=== PATIENT | male | born 1960 | race Caucasian/White ===

== ENCOUNTER 2017-09-30 12:37 | Inpatient (IN) | payer OTHER, MEDICAID ==
[~2017-09-30] VITALS: Ht 170 cm; Wt 53.7 kg
--- NOTE | ~2017-09-30 | PR ---
[place], [place] PROGRESS NOTE NAME: [id number] UN[facility] #: [id number] ROOM: 415 DOCTOR: USMAN DOE MD,MARCELLO BIRTHDATE: [birth year] DOS: 10/02/2017 SUBJECTIVE: The patient noted comfortable at this time, was noted reduction in symptoms of shortness of breath, cough and others. He was sitting on the bed. The patient was drinking coffee. He has not been noted symptoms of chest pain or hemoptysis. Denies edema or pain in lower extremities. OBJECTIVE: VITAL SIGNS: Normal temperature, respiratory rate 20, heart rate 96, blood pressure 114/65. Pulse ox saturation on room air 93% saturation. HEENT: Shows head was atraumatic. Eyes nonicterus. NECK: Supple. CARDIOVASCULAR: S1, S2 is audible. LUNGS: Noted moderate decreased breath sounds in the lungs bilaterally, scattered expiratory wheezing, no crackles. ABDOMEN: Soft, nontender. Bowel sounds present. EXTREMITIES: Without any acute edema. IMPRESSION: 1. Acute exacerbation of chronic obstructive pulmonary disease, rule out alpha 1 antitrypsin deficiency. With current assessment of the patient noted CT scan basilar predominance of the panlobular and centrilobular emphysema changes which are noted combination. 2. The patient with chronic nicotine dependence. 3. Acute left lower lobe pneumonia. PLAN OF MANAGEMENT: Continue antibiotics, bronchodilators and oxygen supplementation. No change in treatment at this time will be necessary. A chest x-ray, repeat, will be ordered to be done tomorrow morning to reassess the progression of the pneumonia. No additional change in treatment otherwise will be necessary. MARCELLO MARY MD CM:PNTRANS [id number] MARCELLO DOE MD 10/02/172122 interface
--- NOTE | ~2017-09-30 | CON ---
[place], [place] REPORT OF CONSULTATION [id number] UN[facility] #: [id number] ROOM: 415 DOCTOR: MARCELLO REGALADO MD BIRTHDATE: [birth year] DOS: 10/01/2017 PULMONARY CONSULTATION, EVALUATION AND MANAGEMENT CONSULTATION REQUESTED BY: Hospitalist services. REASON FOR CONSULTATION: To assess the patient for acute pneumonia. HISTORY OF PRESENT ILLNESS: This is 57-year-old male patient who has been admitted to the hospital under the hospitalist service on the date of 09/30/2017. The patient came into the hospital and presented to the Emergency Room as he has developed symptoms of increased coughing, which has been noted nonproductive, ongoing for the past several days at home. The symptoms of the patient worsened, associated with wheezing and shortness of breath. He got more concerned when he started having symptoms, which are described as pain in the left chest wall. Pain was described mild to moderate with worsening, resulting from the increased coughing with deep inspiratory effort. Pain was described to be sharp. He denies symptoms of hemoptysis. The patient presented to the Emergency Room where he has been assessed for pain in the flank and the chest wall. He underwent CT scan of the abdomen and pelvis, which are reported with findings of pneumonia or infiltration in the left lower lung. The patient stated symptoms have been noted partially improved since yesterday. He denies symptoms of hemoptysis. The patient denies symptoms of chills, but has been noted with symptoms of fever at home. REVIEW OF SYSTEMS: CONSTITUTIONAL: Fatigue and tiredness reported. Denies symptoms of fever or chills. EYES: Denies any burning, redness, or tenderness. EARS, NOSE, AND THROAT: Denies symptoms of sore throat, hoarseness, otalgia, or postnasal drainage. CARDIOVASCULAR: Denies angina pain, edema or pain of the lower extremities. GASTROINTESTINAL: Denies dysphagia, nausea, vomiting, diarrhea, abdominal pain, hematemesis, melena, or hematochezia. SKIN: Denies abnormal lesions or rashes. MUSCULOSKELETAL: Without any acute deformities, pain, or tenderness of any joints. CENTRAL NERVOUS SYSTEM: Denies dizziness, headache, diplopia, or syncopal episodes. Remaining systems were reviewed. They were noted all negative. PAST MEDICAL HISTORY: Reported: 1. COPD. 2. History of pneumothorax twice in the past many years ago. 3. Tobacco use. PAST SURGICAL HISTORY: Noted as: 1. Hernia repair. 2. Chest tube insertion for what was described by the patient most likely a chemical pleurodesis by description many years ago on the left side. [place], [place] REPORT OF CONSULTATION NAME: CAROLYN TOVAR UNIT #: [id number] ROOM: 415 DOCTOR: USMAN DOE MD,MARCELLO BIRTHDATE: [birth year] SOCIAL HISTORY: The patient is , has 4 children, lived at home. History of recreational marijuana use was known. He has been noted with tobacco use up to 2 packs of cigarettes per day at times, varies between 1 to 1-1/2 pack currently smoking about half a pack of cigarettes a day for many years. The patient denies history of chronic alcohol dependence. FAMILY HISTORY: The patient's father from complication of COPD. Mother of complication of COPD as well. HOME MEDICATIONS: Listed as use of: 1. Albuterol sulfate nebulizer solution q. 6 hours p.r.n. for shortness of breath. 2. Flonase 1 spray each nostril daily. 3. Spiriva 18 mcg inhalation daily. DRUG ALLERGIES: No known drug allergies. PHYSICAL EXAMINATION: GENERAL: This is a 57-year-old white male who has been currently comfortably sitting on the bed at this time without any pain causing any distress. VITAL SIGNS: Height was recorded by the nursing staff for the patient with height of 5 feet 7 inches, weight 118 pounds, BMI 18.6. Vital signs for the patient, which were recorded show temperature 100 degrees Fahrenheit at admission, later on afebrile from yesterday. Respiratory rate ranged between 20 and 21. Heart rate 80-139, on admission blood pressure 122/71-122/63 this morning. The pulse oxygen saturation of the patient was recorded as 95% saturation on room air. HEENT: Examination shows head was atraumatic. Eyes nonicterus. NECK: Supple. CARDIOVASCULAR: S1, S2 audible. LUNGS: The patient was noted with crackles noted in the left mid and lower portion of the lung. Otherwise, the breaths are noted decreased bilaterally. ABDOMEN: Noted flat, soft, nontender. EXTREMITIES: Noted without any acute edema. SKIN: Visible skin, no lesions or rashes. CENTRAL NERVOUS SYSTEM: Cranial nerves 2-12 intact. No focal deficit. MUSCULOSKELETAL: Without any acute deformities. IMAGING STUDIES: The chest x-ray of the patient that was done yesterday shows patchy infiltration noted in the left lower lobe with some blunting of the left costophrenic angle. The CT scan of the abdomen and pelvis, lower portion of the thoracic images reviewed for evidence of severe emphysema noted, which were noted basilar as well with area of consolidation and infiltration. IMPRESSION: 1. The patient who has been currently admitted to the hospital noted with acute pneumonia involving the left lower lobe and community-acquired infection. 2. History of chronic nicotine dependence as well. 3. Emphysema, which are noted basilar, rule out alpha 1 antitrypsin deficiency [place], [place] REPORT OF CONSULTATION NAME: CAROLYN TOVAR UNIT #: [id number] ROOM: 415 DOCTOR: MARCELLO REGALADO MD BIRTHDATE: [birth year] as well. 4. Acute exacerbation of chronic obstructive pulmonary disease. PLAN OF MANAGEMENT: The patient will be continued on current antibiotic. We ordered the sputum for Gram stain and culture if not already done. Bronchodilator to help mobilize secretions. Corticosteroid for management of acute exacerbation of chronic obstructive pulmonary disease will be continued. Additional treatment changes will be made for the patient based on progression of the current illness. Usual care, other plan of therapy and management. Alpha 1 antitrypsin level will be done as an outpatient once the patient not noted with any infection. Family history of COPD was reported for the patient suggested with the current history of possibility of alpha 1 antitrypsin deficiency to be excluded. MARCELLO MARY MD CM:CONSTR:REPORT OF CONSULTATION 1054 10/02/17 0133 interface
[~2017-09-30 12:37] MED LIST: AMOXICILLIN500 MG PO; ANAPROX DS550 MG PO; COMBIVENT1 ARO IH; FLONASE 0.05% 121 EA NAS; LEVAQUIN750 MG PO; NKHM; PREDNICOT10 MG PO; PREDNISONE20 M1 PO; PREVACID SOLUTA30 MG PO; PROVENTIL0.09 MG/A1 INH; ROBITUSSIN AC 110 ML PO; ROBITUSSIN DM120 ML PO; SPIRIVA -- 3018 MCG INH; VENTOLIN H0.09 MG/AC INH; VICODIN 5/500 505 MG PO; ZITHROMAX Z PA250 MG PO
[2017-09-30 12:43] VITALS: BP 122/71
[2017-09-30 13:25] LABS: BASO % 0.3 % (0.0-1.0); EOS % 0.1 % (1.0-4.0); HEMATOCRIT 44.7 % (42.0-52.0); HEMOGLOBIN 14.7 g/dl (14.0-18.0); LYMPH # 0.8 10*3/uL (1.3-4.4); LYMPH % 5.7 % (27.0-41.0); MEAN CELL VOLUME 97.4 fl (80.0-94.0); MEAN CORPUSCULAR HGB CONC 32.9 g/dl (33.0-37.0); MEAN PLATELET VOLUME 11.2 fl (9.6-12.3); MONO # 1.1 10*3/uL (0.1-1.0); MONO % 7.6 % (3.0-9.0); NEUT # 12.1 10*3/uL (2.3-7.9); NEUT % 85.7 % (47.0-73.0); PLATELET COUNT AUTOMATED 212 10*3/uL (130-400); RED BLOOD COUNT 4.59 10*6/uL (4.50-5.90); RED CELL DISTRI WIDTH 13.6 % (0-14.5); WHITE BLOOD COUNT 14.1 10*3/uL (4.8-10.8)
[2017-09-30 13:42] LABS: ALBUMIN 2.8 gm/dl (3.1-4.5); ALKALINE PHOSPHATASE 122 U/L (45-117); BUN 13 mg/dl (7-24); CHLORIDE 101 mmol/L (98-107); CREATININE 1.07 mg/dL (0.70-1.30); POTASSIUM 4.2 mmol/L (3.5-5.1); SGOT/AST 15 IU/L (3-35); SGPT/ALT 12 U/L (12-78); SODIUM 135 mmol/L (136-145); TOTAL PROTEIN 7.9 gm/dL (6.4-8.2)
[2017-09-30 14:10] VITALS: BP 122/71
[2017-09-30 15:05] LABS: BILIRUBIN 2+ (NEGATIVE); BLOOD NEGATIVE (NEGATIVE); CLARITY SL CLOUDY (CLEAR); COLOR ORANGE (YELLOW); GLUCOSE NEGATIVE (NEGATIVE); KETONE 1+ (NEGATIVE); LEUKO ESTERASE NEGATIVE (NEGATIVE); NITRITE POSITIVE (NEGATIVE); PH 5.5 (5.0-9.0)
[2017-09-30 15:26] VITALS: BP 126/74
[2017-09-30 15:40] VITALS: BP 112/67
[2017-09-30 15:53] LABS: BACTERIA 1+; MUCOUS 2+
[2017-09-30 16:00] VITALS: BP 112/67
[2017-09-30] MEDS ORDERED: Ventolin 02.5 MG/3 M INH (16:05)
[2017-09-30] MEDS ORDERED: SPIRIVA RESPIMAT4 GM INH (16:08)
[2017-09-30] MEDS ORDERED: FLONASE ALLERG9.9 ML NAS (16:09)
[2017-09-30 20:04] VITALS: BP 98/55
[2017-10-01] VITALS: BP 97/54
[2017-10-01 05:56] LABS: MEAN CELL VOLUME 98.9 fl (80.0-94.0); MEAN CORPUSCULAR HGB 31.9 pg (27.0-31.0); MEAN CORPUSCULAR HGB CONC 32.2 g/dl (33.0-37.0); MEAN PLATELET VOLUME 11.1 fl (9.6-12.3); PLATELET COUNT AUTOMATED 162 10*3/uL (130-400); RED BLOOD COUNT 3.64 10*6/uL (4.50-5.90); RED CELL DISTRI WIDTH 14.1 % (0-14.5); WHITE BLOOD COUNT 6.9 10*3/uL (4.8-10.8)
[2017-10-01 06:08] LABS: BUN 11 mg/dl (7-24); CHLORIDE 107 mmol/L (98-107); CHOLESTEROL 98 mg/dL (<200); CREATININE 0.72 mg/dL (0.70-1.30); PHOSPHOROUS 2.7 mg/dL (2.5-4.9); POTASSIUM 4.6 mmol/L (3.5-5.1); SODIUM 138 mmol/L (136-145); TRIGLYCERIDES 67 mg/dl (<150); VLDL CHOLESTEROL 13 mg/dL (6-40)
[2017-10-01 06:16] LABS: HEMOGLOBIN 11.6 g/dl (14.0-18.0)
[2017-10-01 06:18] LABS: HDL CHOLESTEROL 26 mg/dl (40-60); LDL CHOLESTEROL 59 mg/dL (9-159)
[2017-10-01 07:03] LABS: PLATELET SUFFICIENCY NORMAL (NORMAL); TOTAL CELLS COUNTED 100 #CELLS
[2017-10-01 07:04] LABS: BURR CELLS FEW
[2017-10-01 07:10] LABS: VITAMIN D, 25-HYDROXY 20.3 ng/mL (30-100)
[2017-10-01 08:00] VITALS: BP 122/63
[2017-10-01 12:00] VITALS: BP 119/63
[2017-10-01] MEDS ORDERED: VITAMIN D-32000 UNIT PO (13:55)
[2017-10-01] MEDS ORDERED: DOXYCYCLINE100 M3 PO (13:55)
[2017-10-01 16:00] VITALS: BP 108/59
[2017-10-01 21:00] VITALS: BP 109/57
[2017-10-02] VITALS: BP 135/80
[2017-10-02 08:00] VITALS: BP 114/65
[2017-10-02 12:00] VITALS: BP 96/56
== END 2017-10-02 11:35 | disposition home or self-care (01) | DRG 871 ==
LOC: ED 12:37 → EDHOLD 14:45 → 4E 14:45
PROVIDERS: Nurse Practitioner Family; Student in an Organized Health Care Education/Training Program
DX: A41.9 Sepsis, unspecified organism (principal); J18.1 Lobar pneumonia, unspecified organism; J96.00 Acute respiratory failure, unspecified whether with hypoxia or hypercapnia; E43 Unspecified severe protein-calorie malnutrition; E87.2 Acidosis; E87.1 Hypo-osmolality and hyponatremia; J44.0 Chronic obstructive pulmonary disease with (acute) lower respiratory infection; J44.1 Chronic obstructive pulmonary disease with (acute) exacerbation; Z68.1 Body mass index [BMI] 19.9 or less, adult; R74.8 Abnormal levels of other serum enzymes; R65.20 Severe sepsis without septic shock; D75.89 Other specified diseases of blood and blood-forming organs; R73.9 Hyperglycemia, unspecified; F12.90 Cannabis use, unspecified, uncomplicated; F17.210 Nicotine dependence, cigarettes, uncomplicated; Z71.6 Tobacco abuse counseling; Z79.899 Other long term (current) drug therapy; Z82.5 Family history of asthma and other chronic lower respiratory diseases

== ENCOUNTER → 2017-10-08 | Outpatient (CLI) | payer OTHER, MEDICAID ==
[~2017-10-08] MED LIST changes: +DOXYCYCLINE100 M3 PO; +FLONASE ALLERG9.9 ML NAS; +SPIRIVA RESPIMAT4 GM INH; +VITAMIN D-32000 UNIT PO; +Ventolin 02.5 MG/3 M INH
== END | disposition home or self-care (01) ==
LOC: RESCLI 01:53
DX: J43.9 Emphysema, unspecified (principal); E55.9 Vitamin D deficiency, unspecified; R63.6 Underweight; F17.210 Nicotine dependence, cigarettes, uncomplicated; Z71.6 Tobacco abuse counseling

== ENCOUNTER → 2017-10-30 | Outpatient (CLI) | payer OTHER, MEDICAID ==
--- NOTE | ~2017-10-30 | PF ---
[place], [place] PULMONARY FUNCTION TEST NAME: CAROLYN TOVAR UNIT #: [id number] ROOM: DOCTOR: USMAN DOE MD,MARCELLO BIRTHDATE: [birth year] DOS: 10/30/2017 HISTORY: The patient is a 57-year-old outpatient, male presented for complete pulmonary function testing. Height of 67 inches, weight of 117 pounds with a BMI of 18.3. The testing was ordered by Dr. Paulino Blevins for the assessment of emphysema. The patient noted tobacco use of a 2 packs of cigarettes per day for 40 years. SPIROMETRY: The FVC was recorded as 2.64 liters, 61% predicted value, moderately decreased. The FEV1 noted, 1.05 liters at 31% predicted value, severely decreased. Ratio of FEV1/FVC postbronchodilator noted at 37%. No changes occurred postbronchodilators. Flow volume loop was suggestive of obstructive lung disease. FINAL IMPRESSION: Spirometry noted consistent with severe chronic obstructive pulmonary disease. LUNG VOLUME: Thoracic gas volume recorded as 138%, residual volume 186%, total lung capacity 101%, RV/TLC ratio 180%. The lung volume suggesting moderate airtrapping secondary to obstructive lung disease. The patient's lung diffusion recorded severely decreased without correction of carbon monoxide hemoglobin value for the patient. The patient had normal air resistance and passive conductance noted partial improvement post-bronchodilator test. FINAL IMPRESSION: The current test was noted with finding consistent with severe chronic obstructive pulmonary disease. MARCELLO MARY MD CM:PFREPORT:PULMONARY FUNCTION TEST [id number] MARCELLO DOE MD
== END | disposition home or self-care (01) ==
LOC: CP 03:26
DX: J43.9 Emphysema, unspecified (principal)

== ENCOUNTER → 2018-05-12 | Outpatient (CLI) | payer OTHER ==
[2018-05-13 08:10] LABS: ALPHA-1-ANTITRYPSIN, SERUM 131 mg/dL (90-200)
== END | disposition home or self-care (01) ==
LOC: LAB 13:48
PROVIDERS: Internal Medicine Critical Care Medicine
DX: J44.9 Chronic obstructive pulmonary disease, unspecified (principal)

== ENCOUNTER → 2019-02-19 | Outpatient (CLI) | payer OTHER | END | disposition home or self-care (01) | LOC: RAD 11:46 | DX: J43.9 Emphysema, unspecified (principal) ==

== ENCOUNTER 2019-06-30 14:47 | Inpatient (IN) | payer OTHER ==
[~2019-06-30] VITALS: Ht 167.6 cm; Wt 63.7 kg
[2019-06-30 14:52] VITALS: BP 104/77
--- NOTE | 2019-06-30 15:12 | NUR ---
PT WAS 94-95 ON RA BUT WAS FEELING SOB REQUESTED OXYGEN APPLIED O2 APPLIED VIA NC @2L. CALL LIGHT IN REACH
[2019-06-30 15:22] LABS: HEMOGLOBIN 13.9 g/dl (14.0-18.0); MEAN CORPUSCULAR HGB CONC 32.3 g/dl (33.0-37.0); MEAN PLATELET VOLUME 10.4 fl (9.6-12.3); PLATELET COUNT AUTOMATED 262 10*3/uL (130-400); RED BLOOD COUNT 4.48 10*6/uL (4.50-5.90); RED CELL DISTRI WIDTH 13.4 % (0-14.5); WHITE BLOOD COUNT 18.7 10*3/uL (4.8-10.8)
[2019-06-30 15:37] LABS: ACT PARTIAL THROMBO TIME 35.9 SECONDS (20.0-32.1)
[2019-06-30 15:38] LABS: ALBUMIN 2.6 gm/dl (3.1-4.5); ALKALINE PHOSPHATASE 174 U/L (45-117); BUN 17 mg/dl (7-24); CHLORIDE 104 mmol/L (98-107); CREATININE 1.22 mg/dL (0.70-1.30); POTASSIUM 4.1 mmol/L (3.5-5.1); SGOT/AST 11 IU/L (3-35); SGPT/ALT 26 U/L (12-78); SODIUM 136 mmol/L (136-145); TOTAL PROTEIN 7.9 gm/dL (6.4-8.2)
[2019-06-30 15:42] LABS: TOTAL CELLS COUNTED 100 #CELLS
[2019-06-30 15:43] LABS: PLATELET SUFFICIENCY NORMAL (NORMAL)
[2019-06-30 15:46] VITALS: BP 110/66
[2019-06-30 15:46] LABS: TROPONIN I < 0.015 ng/ml (<0.045)
--- NOTE | 2019-06-30 15:46 | NUR ---
BREATHING TREATMENT HELPED PER PT HE IS RESTING IN BED TEXTING ON HIS CELL PHONE VOICES NO COMPLAINTS HE IS AWARE WE NEED URINE SAMPLE AND WAS GIVEN A URINAL. CALL LIGHT IN REACH
--- NOTE | 2019-06-30 16:19 | NUR ---
ADMITTING DR IN ROOM ASKED ME TO HOLD SOLU-MEDROL UNTILL FLU CAME BACK
[2019-06-30 16:27] VITALS: BP 127/83
--- NOTE | 2019-06-30 16:45 | NUR ---
A 59, admitted to , under the services of GUANACO Gonzalez DO with a diagnosis of PNEUMONIA. Chief complaint is SHORTNESS OF BREATH. Patient arrived via bed from ER. Monitor applied. Initial assessment completed. Vital signs taken and recorded. GUANACO GONZALEZ DO notified of admission to the unit. Orders received. See assessment for past medical history, medications and allergies. Patient and/or family oriented to unit. [facility] visitation policy reviewed. Clothing/patient valuable form completed. SHERRELL MERCER
--- NOTE | 2019-06-30 16:55 | NUR ---
SOLUMEDROL NOT GIVEN FLU RESULTS WAS NOT BACK WHEN PT WAS TAKEN TO FLOOR AND I HAD ALREADY PULLED MEDICATION UP SHERRELL RN WAS NOTIFIED SOLUMEDROL WAS HELD IN ER
--- NOTE | 2019-06-30 17:27 | NUR ---
SHERRELL RN CALLED AND FLU WAS NEGATIVE OK TO GIVE PT SOLUMEDROL NOW BUT IT WOULDNT LET HER PULL THE MEDICATION SO I PUT VO IN FOR SOLU MEDROL 125MG ONE TIME DOSE NOW
--- NOTE | 2019-06-30 17:59 | NUR ---
NOTIFIED OF NEW CONSULT.
[2019-06-30] MEDS ORDERED: PROAIR HFA8.5 GM INH (18:57)
[2019-06-30] MEDS ORDERED: BREO ELLIPTA 11 EACH INH (18:57)
[2019-06-30] MEDS ORDERED: PRINIVIL10 MG PO (18:57)
[2019-06-30] MEDS ORDERED: NAPROXEN500 MG PO (18:58)
[2019-06-30] MEDS ORDERED: VITAMIN D35000 UNIT PO (18:59)
[2019-06-30 19:08] LABS: BILIRUBIN NEGATIVE (NEGATIVE); BLOOD TRACE-INTACT (NEGATIVE); CLARITY CLEAR (CLEAR); COLOR YELLOW (YELLOW); GLUCOSE NEGATIVE (NEGATIVE); KETONE NEGATIVE (NEGATIVE); LEUKO ESTERASE NEGATIVE (NEGATIVE); NITRITE NEGATIVE (NEGATIVE); SPECIFIC GRAVITY 1.005 (1.005-1.030); UROBILINOGEN 0.2 E.U./dl (0.2-1.0)
[2019-06-30 19:09] LABS: BACTERIA TRACE; RBC 0-2 rbc/hpf (0-2); WBC 0-2 wbc/hpf (0-5)
--- NOTE | 2019-06-30 19:40 | NUR ---
PATIENT IS RESTING IN BED WITH EASY AND REGULAR RESPERS ON ROOM AIR. ASSESSMENT IS COMPLETE WITH NO C/O OR S/S OF DISTRESS NOTED AT THIS TIME. BED IS LOW, LOCKED, AND CALL LIGHT IS WITHIN REACH. WILL CONTINUE TO MONITOR, SEE SHIFT ASSESSMENT.
--- NOTE | 2019-06-30 19:42 | NUR ---
PATIENT IS RESTING IN BED WITH EASY AND REGULAR RESPERS ON 2L O2 VIA NC. ASSESSMENT IS COMPLETE WITH NO C/O OR S/S OF DISTRESS NOTED AT THIS TIME. BED IS LOW, LOCKED, AND CALL LIGHT IS WITHIN REACH. WILL CONTINUE TO MONITOR, SEE SHIFT ASSESSMENT.
[2019-06-30 20:00] VITALS: BP 119/77
--- NOTE | 2019-06-30 21:43 | NUR ---
DR. CONSTANTINO AWARE OF LACTIC ACID OF 2.8, "WILL TAKE A LOOK AT IT."
[2019-07-01] VITALS: BP 118/65
[2019-07-01 06:35] LABS: HEMATOCRIT 38.8 % (42.0-52.0); HEMOGLOBIN 12.1 g/dl (14.0-18.0); MEAN CELL VOLUME 96.5 fl (80.0-94.0); MEAN CORPUSCULAR HGB 30.1 pg (27.0-31.0); MEAN CORPUSCULAR HGB CONC 31.2 g/dl (33.0-37.0); MEAN PLATELET VOLUME 10.1 fl (9.6-12.3); PLATELET COUNT AUTOMATED 254 10*3/uL (130-400); RED BLOOD COUNT 4.02 10*6/uL (4.50-5.90); RED CELL DISTRI WIDTH 13.6 % (0-14.5); WHITE BLOOD COUNT 14.2 10*3/uL (4.8-10.8)
[2019-07-01 06:43] LABS: BUN 15 mg/dl (7-24); CHLORIDE 109 mmol/L (98-107); CREATININE 0.95 mg/dL (0.70-1.30); FREE T4 1.13 ng/dl (0.76-1.46); POTASSIUM 4.1 mmol/L (3.5-5.1); SODIUM 139 mmol/L (136-145)
[2019-07-01 07:40] LABS: TOTAL CELLS COUNTED 100 #CELLS
[2019-07-01 07:41] LABS: DOHLE BODIES FEW; PLATELET SUFFICIENCY NORMAL (NORMAL); POLYCHROMASIA SLIGHT; TOXIC GRANULATION SLIGHT
[2019-07-01 07:50] VITALS: BP 114/66
--- NOTE | 2019-07-01 07:51 | NUR ---
VITALS STABLE. SHAHLA. A&OX3. COOPERATIVE. SPO2 98% 2L. HEART SOUNDS NORMAL. LUNGS DIMINISHED THROUGHOUT, I&E WHEEZE. BSX4. SOFT, NON TENDER, NON DISTENDED. SKIN INTACT, PINK WARM AND DRY. PPP. <3 CAP REFILL. HEPLOCK IN R AC PATENT, DRESSING INTACT, NO REDNESS OR SWELLING. PT COMPAINS OF A DULL ACHING HEADACHE- PAIN RATED 5/10. TYLENOL 650MG GIVEN PO PER ORDER FOR PAIN. WILL CONTINUE TO ASSESS. JOSÉ WOLFCC
[2019-07-01 07:54] LABS: VITAMIN D, 25-HYDROXY 37.3 ng/mL (30-100)
--- NOTE | 2019-07-01 08:08 | NUR ---
DR. HERRERA INTO SEE PT. WILL CONTINUE TO ASSESS. CONSUELO BANUELOS, SPNRCC
--- NOTE | 2019-07-01 08:30 | NUR ---
TYLENOL EFFECTIVE. PT RESTING QUIETLY IN BED WATHCING TV. NO OTHER COMPLAINTS AT THIS TIME. WILL CONTINUE TO ASSESS. JASWINDER WOLF
--- NOTE | 2019-07-01 09:00 | NUR ---
Neuroscientist in to talk to patient. Patient states lives at home with . There are no steps in the home. Physician: el messer Pharmacy: [facility] Home health services: none Patient's level of ADLs: INDEPENDENT Patient has working utilities: all working DME: none Follow-up physician's appointment after d/c: will be made by hospitalist nurse director upon discharge Does patient want to access PORTAL?: no Discharge plan discussed with patient, he states he lives at home with , he is independent in adls and ambulation, he uses inhalers at home but doesn't have home oxygen, he states he is scheduled for a bronch tomorrow and will return home with no needs at this time, case managmeent will follow. IDRIS ARNOLD
--- NOTE | 2019-07-01 09:03 | NUR ---
DR. MARY INTO SEE PT. WILL CONTINUE TO ASSESS. CONSUELO BANUELOS, SPNRCC
[2019-07-01 11:51] VITALS: BP 120/68
--- NOTE | 2019-07-01 12:23 | NUR ---
PT RESTING QUIETLY IN BED WATHCING TV. NO COMPLAINTS AT THIS TIME. WILL CONTINUE TO ASSESS. CONSUELO BANUELOS. SPNRCC
[2019-07-01 16:00] VITALS: BP 109/62
--- NOTE | 2019-07-01 19:40 | NUR ---
PT RESTING IN BED. NO S/S OF PAIN/DISCOMFORT NOTED. PT HAS NO COMPLAINTS. 2L NC IN PLACE. CALL LIGHT WITHIN REACH. WILL CONTINUE TO MONITOR.
[2019-07-01 20:00] VITALS: BP 132/68
--- NOTE | 2019-07-01 21:11 | NUR ---
24 HR chart check completed.
[2019-07-02] VITALS (10 sets, daily range): BP systolic 112–160; BP diastolic 58–77
--- NOTE | 2019-07-02 07:52 | NUR ---
PATIENT TO OR BY BED FOR BRONCHOSCOPY.
--- NOTE | 2019-07-02 09:00 | NUR ---
case management visits with patient, he will return home when medically stable and denies any home needs
--- NOTE | 2019-07-02 10:23 | NUR ---
PATIENT BACK FROM OR PROCEDURE, IS AWAKE, ALERT, NO DISTRESS, RESUMING DIET AND MEDICATIONS.
--- NOTE | 2019-07-02 10:42 | NUR ---
SPEECH PATHOLOGY Nursing screen complete. Speech services are not indicated at this time however this dept. will remain available if future needs arise. JOE MCALLISTER MSCCC-MAINTENANCE SHOP WELDER
--- NOTE | 2019-07-02 11:03 | NUR ---
PATIENT DYSPNEIC AT REST, ON DISTRESS, ON O2 3L NC, SINUS TACHYCARDIA RATE 120'S ON MONITOR, UPON AUSCULTATION, POOR AIR EXCHANGE WITH INSPIRATORY WHEEZES NOTED.
[2019-07-02 11:29] LABS: BF LYMPHOCYTES 9 %; BF MACROPHAGES 34 %; BF NEUTROPHILS 57 %
--- NOTE | 2019-07-02 14:40 | NUR ---
MEDICATED WITH PRN PO TYLENOL FOR HEADACHE.
--- NOTE | 2019-07-02 15:21 | NUR ---
Patient resting quietly with no c/o discomfort. Respirations easy and regular. Vital signs stable. No overt distress. TED CA
--- NOTE | 2019-07-02 19:40 | NUR ---
PT RESTING IN BED. AT BEDSIDE. ASSESSMENT COMPLETE. NO COMPLAINS AT THIS TIME. NO S/S PAIN/DISTRESS NOTED. DENIES THE NEED FOR ANYTHING AT THIS TIME. CALL LIGHT WITHIN REACH. WILL CONTINUE TO MONITOR.
--- NOTE | 2019-07-02 23:35 | NUR ---
24 HR chart check completed.
[2019-07-03] VITALS: BP 122/65
--- NOTE | 2019-07-03 00:24 | NUR ---
PT STATES HE CAN'T GET ANY SLEEP AND REQUESTING SOMETHING TO HELP HIM SLEEP. NOTIFIED HE STATES "I'LL TAKE A LOOK AND PUT SOMETHING IN."
--- NOTE | 2019-07-03 01:07 | NUR ---
MEDICATED WITH PRN RESTORIL ORDERED PER PT REQUEST FOR COMPLAINTS OF INSOMNIA. WILL CHECK EFFECTIVENESS. CALL LIGHT IN REACH.
--- NOTE | 2019-07-03 02:30 | NUR ---
PT SLEEPING, RESPIRATIONS EASY AND REGULAR. RESTORIL EFFECTIVE. CALL LIGHT WITHIN REACH. WILL CONTINUE TO MONITOR.
[2019-07-03 06:42] LABS: BASO % 0.1 % (0.0-1.0); EOS % 0.1 % (1.0-4.0); HEMATOCRIT 35.7 % (42.0-52.0); HEMOGLOBIN 11.4 g/dl (14.0-18.0); LYMPH # 1.3 10*3/uL (1.3-4.4); LYMPH % 9.4 % (27.0-41.0); MEAN CELL VOLUME 96.7 fl (80.0-94.0); MEAN CORPUSCULAR HGB 30.9 pg (27.0-31.0); MEAN CORPUSCULAR HGB CONC 31.9 g/dl (33.0-37.0); MEAN PLATELET VOLUME 10.2 fl (9.6-12.3); MONO # 1.2 10*3/uL (0.1-1.0); MONO % 8.8 % (3.0-9.0); NEUT # 11.3 10*3/uL (2.3-7.9); NEUT % 79.5 % (47.0-73.0); PLATELET COUNT AUTOMATED 341 10*3/uL (130-400); RED BLOOD COUNT 3.69 10*6/uL (4.50-5.90); WHITE BLOOD COUNT 14.2 10*3/uL (4.8-10.8)
[2019-07-03 07:20] LABS: CHLORIDE 111 mmol/L (98-107); POTASSIUM 3.7 mmol/L (3.5-5.1); SODIUM 145 mmol/L (136-145)
--- NOTE | 2019-07-03 07:23 | NUR ---
PT TO XRAY VIA WC. CONDITION STABLE. WILL CONTINUE TO ASSESS JAWSINDER WOLF
[2019-07-03 07:25] LABS: BUN 18 mg/dl (7-24); CREATININE 0.86 mg/dL (0.70-1.30)
--- NOTE | 2019-07-03 07:40 | NUR ---
PT RETURNED FROM XRAY VIA WC. CONDITION STABLE. WILL CONTINUE TO ASSESS. JASWINDER WOLF
--- NOTE | 2019-07-03 07:55 | NUR ---
VITALS STABLE. A&OX3. SHAHLA. COOPERATIVE. HEART SOUNDS NORMAL. LUNGS DIMINISHED THROUGHOUT, I&E WHEEZE. SOB ON EXERTION. SPO2 99% 3L NC. BSX4, NON TENDER NON DISTENDED. SKIN PINK, WARM DRY AND INTACT. SKIN TURGUR NON TENTING. PPP. IV SITE IN LEFT WRIST INTACT, NO REDNESS OR SWELLING. NO C/O PAIN AT THIS TIME. WILL CONTINUE TO ASSESS. JOSÉ WOLFCC
[2019-07-03 08:01] VITALS: BP 124/72
--- NOTE | 2019-07-03 08:59 | NUR ---
PT C/O "ANNOYING ACHING HEADACHE" 6/10 ON PAIN SCALE. TYLENOL 650MG GIVEN PO PER ORDER. NO OTHER COMPLAINTS AT THIS TIME. WILL MONITOR FOR EFFECTIVENESS. JASWINDER WOLF
--- NOTE | 2019-07-03 09:00 | NUR ---
case management visits with patient, he will return home when medically stable and denies any home needs
--- NOTE | 2019-07-03 09:40 | NUR ---
TYLENOL EFFECTIVE. PT RESTING QUIETLY IN BED WATHCING TV. WILL CONTINUE TO ASSESS. JASWINDER WOLF
--- NOTE | 2019-07-03 11:36 | NUR ---
PT RESTING IN BED, EYES OPEN, WATHCING TV. WILL CONTINUE TO ASSESS. JASWINDER WOLF
[2019-07-03 11:55] VITALS: BP 136/66
[2019-07-03 16:00] VITALS: BP 134/72
[2019-07-03 16:07] LABS: ACID FAST SPEC PROCESSING Concentration (.)
[2019-07-03 20:00] VITALS: BP 149/82
--- NOTE | 2019-07-03 21:25 | NUR ---
PT REQUEST AND GIVEN TYLENOL AND RESTORIL. TAKEN WITH A SIP OF WATER WITHOUT INCIDENT.
--- NOTE | 2019-07-03 23:33 | NUR ---
PATIENT RESTING ON BACK, EASY REGULAR RESPIRATIONS ON 2L NC. EARLIER PRN MEDICATIONS APPEAR EFFECTIVE. BED IN LOW, LOCKED POS, CALL LIGHT IN REACH.
[2019-07-04] VITALS: BP 129/74
[2019-07-04 06:22] LABS: HEMATOCRIT 37.6 % (42.0-52.0); HEMOGLOBIN 11.5 g/dl (14.0-18.0); MEAN CELL VOLUME 98.2 fl (80.0-94.0); MEAN CORPUSCULAR HGB CONC 30.6 g/dl (33.0-37.0); MEAN PLATELET VOLUME 9.8 fl (9.6-12.3); NUCLEATED RED BLOOD CELL 0.3 % (0.0-0.0); PLATELET COUNT AUTOMATED 376 10*3/uL (130-400); RED BLOOD COUNT 3.83 10*6/uL (4.50-5.90); RED CELL DISTRI WIDTH 14.2 % (0-14.5); WHITE BLOOD COUNT 11.4 10*3/uL (4.8-10.8)
[2019-07-04 06:46] LABS: BUN 18 mg/dl (7-24); CHLORIDE 114 mmol/L (98-107); SODIUM 148 mmol/L (136-145)
[2019-07-04 06:47] LABS: CREATININE 0.96 mg/dL (0.70-1.30)
[2019-07-04 07:19] LABS: PLATELET SUFFICIENCY NORMAL (NORMAL); TOTAL CELLS COUNTED 100 #CELLS
[2019-07-04 08:00] VITALS: BP 134/84
--- NOTE | 2019-07-04 08:30 | NUR ---
Patient resting quietly with no c/o discomfort. Respirations easy and regular. Vital signs stable. No overt distress. CHERELLE RICKS R
[2019-07-04 12:00] VITALS: BP 140/83
--- NOTE | 2019-07-04 14:03 | NUR ---
DR CULP NOTIFIED OF PT HR RATE INTO LOW 130'S WITH AMBULATION TO BATHROOM.
[2019-07-04] MEDS ORDERED: DOXYCYCLINE100 M3 PO (15:12)
[2019-07-04] MEDS ORDERED: PREDNISONE10 MG PO (15:12)
[2019-07-04 16:00] VITALS: BP 149/93
--- NOTE | 2019-07-04 16:13 | NUR ---
ASSESS FOR HOME OXYGEN COMPLETED. AT REST ON ROOM AIR SPO2 95% HR 105 BP 142/70. DURING AMBULATION SPO2 DECREASED TO 87% HEARTRATE INCREASE TO INTO 130. PATIENT PLACED ON 2L/M TO MAINTAIN SATURATIONS AT 92% OR GREATER. POST AMBULATION AT REST ON 2 L/M SPO2 94% HR 121 BP 142/70. DR CULP NOTIFIED PATIENT QUALIFIED FOR O2.
--- NOTE | 2019-07-04 17:53 | NUR ---
Discharge instructions reviewed with patient/family. Patient receptive and verbalizes understanding. Follow-up care arranged. Written instructions given to patient/family. CHERELLE RICKS
[2019-07-06 10:05] LABS: ADENOVIRUS Negative (Negative); INFLUENZA A Negative (Negative); INFLUENZA B Negative (Negative); METAPNEUMOVIRUS Negative (Negative); PARAINFLUENZA 1 Negative (Negative); PARAINFLUENZA 2 Negative (Negative); PARAINFLUENZA 3 Negative (Negative); RHINOVIRUS Negative (Negative); RSV A Negative (Negative); RSV B Negative (Negative)
[2019-07-31 17:05] LABS: ACID FAST CULTURE Positive (.); M GORDONAE Not Indicated (.); M KANSASII Not Indicated (.); M TUBERCULOSIS COMPLEX Negative (.)
[2019-08-03 14:48] LABS: M AVIUM COMPLEX Positive (.)
== END 2019-07-04 17:53 | disposition home or self-care (01) | DRG 871 ==
LOC: ED 14:47 → 5E 15:58 → EDHOLD 15:58 → 5E 16:07
PROVIDERS: Family Medicine; Internal Medicine; Internal Medicine Critical Care Medicine; ADMIT Internal Medicine
PROC: 0B968ZZ Drainage of Right Lower Lobe Bronchus, Via Natural or Artificial Opening Endoscopic (ICD-10-PCS; principal; 2019-07-02)
PROC: 0B938ZZ Drainage of Right Main Bronchus, Via Natural or Artificial Opening Endoscopic (ICD-10-PCS; principal; 2019-07-02)
PROC: 0B978ZZ Drainage of Left Main Bronchus, Via Natural or Artificial Opening Endoscopic (ICD-10-PCS; principal; 2019-07-02)
PROC: 0B928ZZ Drainage of Carina, Via Natural or Artificial Opening Endoscopic (ICD-10-PCS; principal; 2019-07-02)
PROC: 0B9G8ZX Drainage of Left Upper Lung Lobe, Via Natural or Artificial Opening Endoscopic, Diagnostic (ICD-10-PCS; principal; 2019-07-02)
PROC: 0B988ZZ Drainage of Left Upper Lobe Bronchus, Via Natural or Artificial Opening Endoscopic (ICD-10-PCS; principal; 2019-07-02)
PROC: 0B918ZZ Drainage of Trachea, Via Natural or Artificial Opening Endoscopic (ICD-10-PCS; principal; 2019-07-02)
PROC: 0B998ZZ Drainage of Lingula Bronchus, Via Natural or Artificial Opening Endoscopic (ICD-10-PCS; principal; 2019-07-02)
PROC: 0B948ZZ Drainage of Right Upper Lobe Bronchus, Via Natural or Artificial Opening Endoscopic (ICD-10-PCS; principal; 2019-07-02)
PROC: 0B958ZZ Drainage of Right Middle Lobe Bronchus, Via Natural or Artificial Opening Endoscopic (ICD-10-PCS; principal; 2019-07-02)
PROC: 0B9B8ZZ Drainage of Left Lower Lobe Bronchus, Via Natural or Artificial Opening Endoscopic (ICD-10-PCS; principal; 2019-07-02)
DX: A41.9 Sepsis, unspecified organism (principal); J18.9 Pneumonia, unspecified organism; E43 Unspecified severe protein-calorie malnutrition; T17.590A Other foreign object in bronchus causing asphyxiation, initial encounter; J43.2 Centrilobular emphysema; R65.20 Severe sepsis without septic shock; D64.9 Anemia, unspecified; E83.41 Hypermagnesemia; R73.9 Hyperglycemia, unspecified; T38.0X5A Adverse effect of glucocorticoids and synthetic analogues, initial encounter; J40 Bronchitis, not specified as acute or chronic; X58.XXXA Exposure to other specified factors, initial encounter; Y92.89 Other specified places as the place of occurrence of the external cause; Z87.891 Personal history of nicotine dependence; Z83.6 Family history of other diseases of the respiratory system; Z68.22 Body mass index [BMI] 22.0-22.9, adult; Z88.8 Allergy status to other drugs, medicaments and biological substances; Z79.899 Other long term (current) drug therapy; Y93.89 Activity, other specified

== ENCOUNTER 2019-07-16 15:21 | Emergency (ER) | payer OTHER ==
[~2019-07-16] VITALS: Ht 167.6 cm; Wt 65.8 kg
[~2019-07-16 15:21] MED LIST changes: +BREO ELLIPTA 11 EACH INH; +NAPROXEN500 MG PO; +PREDNISONE10 MG PO; +PRINIVIL10 MG PO; +PROAIR HFA8.5 GM INH; +VITAMIN D35000 UNIT PO
[2019-07-16 15:55] LABS: HEMATOCRIT 52.8 % (42.0-52.0); HEMOGLOBIN 16.6 g/dl (14.0-18.0); MEAN CELL VOLUME 96.7 fl (80.0-94.0); MEAN CORPUSCULAR HGB 30.4 pg (27.0-31.0); MEAN CORPUSCULAR HGB CONC 31.4 g/dl (33.0-37.0); MEAN PLATELET VOLUME 10.3 fl (9.6-12.3); PLATELET COUNT AUTOMATED 478 10*3/uL (130-400); RED BLOOD COUNT 5.46 10*6/uL (4.50-5.90); RED CELL DISTRI WIDTH 13.8 % (0-14.5); WHITE BLOOD COUNT 18.8 10*3/uL (4.8-10.8)
[2019-07-16 16:10] LABS: ACT PARTIAL THROMBO TIME 27.2 SECONDS (20.0-32.1); INTERNATIONAL NORM RATIO 0.9 (2.0-3.5)
[2019-07-16 16:11] LABS: ALBUMIN 3.7 gm/dl (3.1-4.5); ALKALINE PHOSPHATASE 97 U/L (45-117); BUN 13 mg/dl (7-24); CHLORIDE 100 mmol/L (98-107); CREATININE 1.16 mg/dL (0.70-1.30); SGOT/AST 27 IU/L (3-35); SGPT/ALT 33 U/L (12-78); SODIUM 136 mmol/L (136-145); TOTAL PROTEIN 7.8 gm/dL (6.4-8.2)
[2019-07-16 16:15] LABS: TROPONIN I < 0.015 ng/ml (<0.045)
[2019-07-16 16:26] LABS: PLATELET SUFFICIENCY NORMAL (NORMAL); TOTAL CELLS COUNTED 100 #CELLS
[2019-07-16 20:18] VITALS: BP 124/91
== END 2019-07-16 20:55 | disposition short-term general hospital (02) ==
LOC: ED 15:21
PROVIDERS: Emergency Medicine
DX: J93.83 Other pneumothorax (principal); J44.9 Chronic obstructive pulmonary disease, unspecified; I10 Essential (primary) hypertension; Z87.891 Personal history of nicotine dependence; Z91.018 Allergy to other foods; Z79.2 Long term (current) use of antibiotics; Z79.899 Other long term (current) drug therapy

== ENCOUNTER 2020-03-11 09:45 | Inpatient (IN) | payer OTHER, MEDICAID ==
[2020-03-11] VITALS (11 sets, daily range): BP systolic 100–158; BP diastolic 61–98
[~2020-03-11] VITALS: Ht 170.1 cm
[2020-03-11 10:11] LABS: BASO # 0.1 10*3/uL (0.0-0.1); BASO % 0.9 % (0.0-1.0); EOS # 0.1 10*3/uL (0.0-0.4); EOS % 1.5 % (1.0-4.0); HEMATOCRIT 51.2 % (42.0-52.0); LYMPH # 1.2 10*3/uL (1.3-4.4); LYMPH % 15.6 % (27.0-41.0); MEAN CELL VOLUME 93.9 fl (80.0-94.0); MEAN CORPUSCULAR HGB 30.1 pg (27.0-31.0); MEAN PLATELET VOLUME 9.7 fl (9.6-12.3); MONO # 0.6 10*3/uL (0.1-1.0); MONO % 8.5 % (3.0-9.0); NEUT # 5.4 10*3/uL (2.3-7.9); NEUT % 73.1 % (47.0-73.0); PLATELET COUNT AUTOMATED 440 10*3/uL (130-400); RED BLOOD COUNT 5.45 10*6/uL (4.50-5.90); RED CELL DISTRI WIDTH 13.9 % (0-14.5); WHITE BLOOD COUNT 7.4 10*3/uL (4.8-10.8)
[2020-03-11 10:24] LABS: ACT PARTIAL THROMBO TIME 28.3 SECONDS (20.0-32.1)
[2020-03-11 10:34] LABS: ALBUMIN 3.8 gm/dl (3.1-4.5); ALKALINE PHOSPHATASE 107 U/L (45-117); BUN 9 mg/dl (7-24); CHLORIDE 108 mmol/L (98-107); CREATININE 0.96 mg/dL (0.70-1.30); POTASSIUM 4.2 mmol/L (3.5-5.1); SGOT/AST 24 IU/L (3-35); SGPT/ALT 29 U/L (12-78); SODIUM 140 mmol/L (136-145); TOTAL PROTEIN 8.1 gm/dL (6.4-8.2)
[2020-03-11 10:39] LABS: TROPONIN I < 0.015 ng/ml (<0.045)
[2020-03-11] MEDS ORDERED: SYMB80 INH (13:54)
--- NOTE | 2020-03-11 14:04 | NUR ---
[facility] 59, admitted to , under the services of KATY Art DO with a diagnosis of PNEUMOTHORAX. Chief complaint is SOB, PAIN. Patient arrived via bed from ER. Monitor applied. Initial assessment completed. Vital signs taken and recorded. KATY ART DO notified of admission to the unit. Orders received. See assessment for past medical history, medications and allergies. Patient and/or family oriented to unit. [facility] visitation policy reviewed. Clothing/patient valuable form completed. RITCHIE BOBO
--- NOTE | 2020-03-11 15:32 | NUR ---
NOTIFIED DR. MARY OF CONSULT.
--- NOTE | 2020-03-11 15:45 | NUR ---
CALLED TO PT'S ROOM BY RESP. PT'S LEFT CHEST SWELLING INTO NECK. SOB, POX 97%. DR. SMITH'S TEAM NOTIFIED STAT CXR ORDERED.
--- NOTE | 2020-03-11 16:10 | NUR ---
PT TAKEN TO [facility].
--- NOTE | 2020-03-11 16:15 | NUR ---
PATIENT ARRIVED TO [facility] 3. PATIENT IN EXTREME PAIN. SITTING IN HIGH FOWLERS POSITION. SUBQ EMPHYSEMA NOTED TO ENTIRE CHEST AREA/ABDOMINAL AREA/ LEFT HIP. NECK VERY RED WITH LARGE AMOUNT OF SWELLING NOTED. SUBQ EMPHYSEMA NOTED TO NECK WELL. CALLED TO UNIT.
--- NOTE | 2020-03-11 16:30 | NUR ---
PATIENT SEDATED WITH 120MG SUCCS AND 150MG DIPRIVAN FOR SEDATION FOR INTUBATION. INTUBATED WITH #8ETT. 23LIP. PLACED ON VENT SETTINGS CMV 12 TV 400 PEEP 3 O2 40%.
--- NOTE | 2020-03-11 17:00 | NUR ---
ARLENE HALL MACHINERY MECHANIC PLACED RIGHT RADIAL ARTLINE. MAYCOL LYNCH MACHINERY MECHANIC PLACED RIJ MLC. RN INSERTED #18 HAMPTON CATHETER WITH 50CC STRAW URINE RETURNED. #16 OGT INSERTED. MAYCOL LYNCH MACHINERY MECHANIC GAVE ADDITIONAL 100MG DIPRIVAN IV PUSH.
[2020-03-11 17:54] LABS: ABG BASE EXCESS -2.5 mmol/L (-2.0-2.0); ARTERIAL BLOOD GAS PH 7.252 (7.35-7.45)
[2020-03-11] MEDS ORDERED: Ipratropium Brom3 ML INH (19:05)
--- NOTE | 2020-03-11 20:04 | NUR ---
VERSED AND MORPHINE GIVEN AT THIS TIME FOR INCREASED AGITATION AND RESTLESSNESS. MEDICATIONS EFFECTIVE. BP RETURN TO BASELINE AND PATIENT SHOWING NO S&S OF DISTRESS AT THIS TIME. HOB ELEVATED.WILL CONTINUE TO MONITOR AND REASSESS.
--- NOTE | 2020-03-11 21:12 | NUR ---
VERSED GIVEN FOR INCREASED AGITATION AT THIS TIME. MEDICATION EFFECTIVE. PATIENT RESTING COMFORTABLY, PATIENT SUCTIONED AND REPOSITIONED AT THIS TIME.
--- NOTE | 2020-03-11 22:30 | NUR ---
RECEIVED CALL FROM [facility] ASKING FOR AN UPDATE OF CONDITION OF PATIENT. PATIENT CONDITION REVIEWED. NO BEDS AVAILABLE AT [facility] AT THIS TIME. SPECULATES THAT NO BEDS WILL BE AVAILABLE THROUGHTOUT THE NIGHT. DR. TAM NOTIFIED AT THIS TIME. NO FURTHER ORDERS AT THIS TIME.
--- NOTE | 2020-03-11 23:00 | NUR ---
ROBBIE TOVAR UPDATED WITH PLAN OF CARE AT THIS TIME.
[2020-03-12] VITALS (9 sets, daily range): BP systolic 100–138; BP diastolic 61–74
--- NOTE | 2020-03-12 02:05 | NUR ---
MORPHINE AND VERSED GIVEN FOR PATIENT GRIMACING, S&S OF DISTRESS NOTED SND PULLING AT RESTRAINTS. MEDICATIONS EFFECTIVE. PATIENT RESTING COMFORTABLY. SOFT RESTRAINTS ADJUSTED AND PATIENT REPOSITIONED.
[2020-03-12 06:40] LABS: ABG BASE EXCESS -2.2 mmol/L (-2.0-2.0); ARTERIAL BLOOD GAS PH 7.337 (7.35-7.45)
[2020-03-12 06:48] LABS: BASO % 0.4 % (0.0-1.0); EOS # 0.1 10*3/uL (0.0-0.4); HEMATOCRIT 41.3 % (42.0-52.0); LYMPH # 1.1 10*3/uL (1.3-4.4); LYMPH % 10.5 % (27.0-41.0); MEAN CORPUSCULAR HGB 30.4 pg (27.0-31.0); MEAN CORPUSCULAR HGB CONC 31.2 g/dl (33.0-37.0); MEAN PLATELET VOLUME 9.7 fl (9.6-12.3); MONO # 0.7 10*3/uL (0.1-1.0); MONO % 6.6 % (3.0-9.0); NEUT # 8.5 10*3/uL (2.3-7.9); NEUT % 81.1 % (47.0-73.0); PLATELET COUNT AUTOMATED 332 10*3/uL (130-400); RED BLOOD COUNT 4.24 10*6/uL (4.50-5.90); RED CELL DISTRI WIDTH 14.3 % (0-14.5); WHITE BLOOD COUNT 10.4 10*3/uL (4.8-10.8)
[2020-03-12 06:51] LABS: MEAN CELL VOLUME 97.4 fl (80.0-94.0)
[2020-03-12 07:10] LABS: ALBUMIN 2.6 gm/dl (3.1-4.5); BUN 8 mg/dl (7-24); CHLORIDE 112 mmol/L (98-107); CHOLESTEROL 134 mg/dL (<200); CREATININE 0.79 mg/dL (0.70-1.30); POTASSIUM 4.1 mmol/L (3.5-5.1); SGOT/AST 9 IU/L (3-35); SGPT/ALT 19 U/L (12-78); SODIUM 142 mmol/L (136-145); TOTAL PROTEIN 5.6 gm/dL (6.4-8.2); TRIGLYCERIDES 96 mg/dl (<150); VLDL CHOLESTEROL 19 mg/dL (6-40)
[2020-03-12 07:18] LABS: ALKALINE PHOSPHATASE 73 U/L (45-117); HDL CHOLESTEROL 59 mg/dl (40-60); LDL CHOLESTEROL 56 mg/dL (9-159)
[2020-03-12 07:40] LABS: VITAMIN D, 25-HYDROXY 39.4 ng/mL (30-100)
--- NOTE | 2020-03-12 08:25 | NUR ---
PATIENT TRANSFERRED TO [facility]IA [facility]. TRANSFER PACKET SENT WITH AMBULANCE CREW. NO PERSONAL BELONGINGS ARE WITH PATIENT THEY WERE SENT HOME WITH SPOUSE YESTERDAY. REPORT GIVEN TO RN AT [facility].
== END 2020-03-12 08:25 | disposition short-term general hospital (02) | DRG 200 ==
LOC: ED 09:45 → EDHOLD 11:51 → 5E 12:47 → ICCU 16:02
PROVIDERS: Internal Medicine; Internal Medicine Critical Care Medicine; Registered Nurse; ADMIT Student in an Organized Health Care Education/Training Program; ATTEND Student in an Organized Health Care Education/Training Program
PROC: B548ZZA Ultrasonography of Superior Vena Cava, Guidance (ICD-10-PCS; principal; 2020-03-11)
PROC: 0CJS8ZZ Inspection of Larynx, Via Natural or Artificial Opening Endoscopic (ICD-10-PCS; principal; 2020-03-11)
PROC: 02HV33Z Insertion of Infusion Device into Superior Vena Cava, Percutaneous Approach (ICD-10-PCS; principal; 2020-03-11)
PROC: 0W9B30Z Drainage of Left Pleural Cavity with Drainage Device, Percutaneous Approach (ICD-10-PCS; principal; 2020-03-11)
DX: J93.83 Other pneumothorax (principal); R65.10 Systemic inflammatory response syndrome (SIRS) of non-infectious origin without acute organ dysfunction; T79.7XXA Traumatic subcutaneous emphysema, initial encounter; J44.9 Chronic obstructive pulmonary disease, unspecified; E55.9 Vitamin D deficiency, unspecified; X58.XXXA Exposure to other specified factors, initial encounter; R00.0 Tachycardia, unspecified; Y93.89 Activity, other specified; Z88.8 Allergy status to other drugs, medicaments and biological substances; Z83.6 Family history of other diseases of the respiratory system; Z87.891 Personal history of nicotine dependence; Z78.9 Other specified health status; Y92.89 Other specified places as the place of occurrence of the external cause; Y99.8 Other external cause status

== ENCOUNTER 2021-12-06 09:54 | Emergency (ER) | payer OTHER ==
[~2021-12-06] VITALS: Ht 170.1 cm; Wt 61.2 kg
[~2021-12-06 09:54] MED LIST changes: +Ipratropium Brom3 ML INH; +SYMB80 INH
[2021-12-06 10:13] VITALS: BP 149/78
[2021-12-06 11:07] LABS: BASO % 0.6 % (0.0-1.0); EOS % 0.6 % (1.0-4.0); LYMPH # 1.1 10*3/uL (1.3-4.4); LYMPH % 15.8 % (27.0-41.0); MEAN CORPUSCULAR HGB 30.2 pg (27.0-31.0); MEAN CORPUSCULAR HGB CONC 32.8 g/dl (33.0-37.0); MEAN PLATELET VOLUME 10.5 fl (9.6-12.3); MONO # 0.7 10*3/uL (0.1-1.0); MONO % 9.7 % (3.0-9.0); NEUT % 73.2 % (47.0-73.0); PLATELET COUNT AUTOMATED 247 10*3/uL (130-400); RED CELL DISTRI WIDTH 14.3 % (0-14.5); WHITE BLOOD COUNT 6.8 10*3/uL (4.8-10.8)
[2021-12-06 11:38] LABS: BUN 6 mg/dl (7-24); CHLORIDE 109 mmol/L (98-107); CREATININE 1.04 mg/dL (0.70-1.30); LIPASE 119 U/L (73-393); POTASSIUM 4.1 mmol/L (3.5-5.1); SGOT/AST 22 IU/L (3-35); SGPT/ALT 21 U/L (12-78); SODIUM 140 mmol/L (136-145)
[2021-12-06 11:40] LABS: ALKALINE PHOSPHATASE 70 U/L (45-117); TOTAL PROTEIN 6.7 gm/dL (6.4-8.2)
[2021-12-06] MEDS ORDERED: PEPCID20 MG PO (15:37)
== END 2021-12-06 16:06 | disposition home or self-care (01) ==
LOC: ED 09:54
PROVIDERS: Emergency Medicine
DX: K29.00 Acute gastritis without bleeding (principal); K21.9 Gastro-esophageal reflux disease without esophagitis; R11.10 Vomiting, unspecified; R10.13 Epigastric pain; Z87.891 Personal history of nicotine dependence; Z98.890 Other specified postprocedural states; Z79.899 Other long term (current) drug therapy

== ENCOUNTER → 2022-01-26 | Day surgery (SDC) | payer OTHER ==
[~2022-01-26] VITALS: Ht 170.1 cm; Wt 61.2 kg
[~2022-01-26] MED LIST changes: +METOPROLOL SUCC50 M1 PO; +PEPCID20 MG PO; +SPIRIVA RESPIMAT4 G1 INH; +TOPCARE OMEPRAZ20 MG PO
[2022-01-26 07:08] VITALS: BP 136/77
[2022-01-26 07:47] VITALS: BP 97/45
[2022-01-26 08:02] VITALS: BP 107/62
[2022-01-26 08:15] VITALS: BP 120/70
== END | disposition home or self-care (01) ==
LOC: SDC 01-22 14:00
PROVIDERS: ATTEND Surgery
DX: K21.9 Gastro-esophageal reflux disease without esophagitis (principal); K29.50 Unspecified chronic gastritis without bleeding; J44.9 Chronic obstructive pulmonary disease, unspecified; I10 Essential (primary) hypertension; Z79.899 Other long term (current) drug therapy

== ENCOUNTER → 2025-03-16 | Outpatient (CLI) | payer OTHER ==
[2025-03-16 18:14] LABS: BUN 7 mg/dl (9-23); SGPT/ALT 30 U/L (5-49)
== END | disposition home or self-care (01) ==
LOC: LAB 17:33
PROVIDERS: ATTEND Physician Assistant
DX: Z01.812 Encounter for preprocedural laboratory examination (principal)